=== PATIENT | male | born 1935 | race Caucasian/White ===

== ENCOUNTER 2017-05-26 16:17 | Emergency (ER) | payer OTHER, MEDICARE ==
--- NOTE | 2017-05-26 16:37 | PDOC ---
History of Present Illness - General Chief Complaint: Lightheaded Stated Complaint: VERTIGO Time Seen by Provider: 05/26/17 16:35 - History of Present Illness Initial Comments: 05/26/17 16:36 Mr. Moya is a 81 year old male with a significant past medical history of CLL, peptic ulcer disease, and anemia who presents to the emergency department with symptoms of dizzineness and reported weakness. The patient denies chest pain, shortness of breath, headache. Denies fever, chills, nausea, vomit, diarrhea and constipation. Denies dysuria, frequency, urgency and hematuria. Sayjeni was previously recently diagnosed with vertigo for which he takes nothing. Allergies: NKDA Past surgical history: denies Social history: Drinks a 1/2 bottle of wine / night 05/26/17 18:57 05/26/17 19:23 05/26/17 19:26 Past History - Past Medical History Allergies/Adverse Reactions: Allergies Allergy/AdvReac Type Severity Reaction Status Date / Time No Known Allergies Allergy Verified 07/07/16 09:54 Home Medications: Ambulatory Orders Ascorbic Acid [Vitamin C -] 500 mg PO DAILY tablet 07/11/16 Atenolol [Tenormin -] 25 mg PO DAILY tablet 07/11/16 Atorvastatin Ca [Lipitor] 80 mg PO HS tablet 07/11/16 Fluoxetine HCl [Prozac -] 40 mg PO DAILY capsule 07/11/16 Lisinopril [Prinivil] 5 mg PO DAILY tablet 07/11/16 Lorazepam [Ativan] 1 mg PO Q12H PRN #1 tablet MDD 2 07/11/16 Calcium Carbonate [Calcium] 500 mg PO DAILY 10/14/16 Cholecalciferol (Vitamin D3) [Vitamin D3] 2,000 unit PO DAILY 10/14/16 Docusate Sodium [Colace -] 100 mg PO DAILY PRN 10/14/16 Nitroglycerin 0.4 mg SL PRN PRN 10/14/16 Pantoprazole Sodium [Protonix -] 40 mg PO DAILY #0 tablet.ec 10/14/16 Polyethylene Glycol 3350 [Miralax 119 gm Btl -] 17 gm PO DAILY PRN 10/14/16 Ubidecarenone [Co Q-10] 10 mg PO DAILY 10/14/16 Vitamin B Complex Vit C No.4 [Super B Complex] 150 mg PO DAILY 10/14/16 Anemia: Yes Asthma: No Cancer: No Cardiac Disorders: Yes (ASHD NC-DX 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) CVA: No 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) CHF: No Dementia: No Diabetes: No GI Disorders: Yes (H/O COLON POLYP, DIVERTICULOSIS, HEMORRHOIDS, HIATAL HERNIA; ANTRAL ULCER) Disorders: No HTN: Yes Hypercholesterolemia: Yes Liver Disease: No Suicide Attempt (Hx): No Seizures: No Thyroid Disease: No - Surgical History Abdominal Surgery: Yes (UMBILICAL HERNIA REPAIR,BILATERAL HERNIA REPAIR) Appendectomy: No Cardiac Surgery: Yes (OPEN HEART [id number],TRIPLE-1997) Cholecystectomy: Yes (LAPAROSCOPIC CHOLECYSTECTOMY 2001) Lung Surgery: Yes (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 No fever or chills. HEAD, EYES, EARS, NOSE AND THROAT: No change in vision. No ear pain or discharge. No sore throat. CARDIOVASCULAR: No chest pain or shortness of breath RESPIRATORY: No cough, wheezing, or hemoptysis. GASTROINTESTINAL: No nausea, vomiting, diarrhea or constipation. GENITOURINARY: No dysuria, frequency, or change in urination. MUSCULOSKELETAL: No joint or muscle swelling or pain. No neck or back pain. SKIN: No rash NEUROLOGIC: No headache, vertigo, loss of consciousness, or change in strength/ sensation. ENDOCRINE: No increased thirst. No abnormal weight change HEMATOLOGIC/LYMPHATIC: No anemia, easy bleeding, or history of blood clots. ALLERGIC/IMMUNOLOGIC: No hives or skin allergy. 05/26/17 19:26 *Physical Exam - Physical Exam Comments: 05/26/17 16:37 GENERAL: Awake, alert, and fully oriented, in no acute distress. Some dizziness noted with movement. HEAD: No signs of trauma, normocephalic, atraumatic EYES: PERRLA, EOMI, sclera anicteric, conjunctiva clear ENT: Auricles normal inspection, hearing grossly normal, nares patent, oropharynx clear without exudates. Moist mucosa NECK: Normal ROM, supple, no lymphadenopathy, JVD, or masses LUNGS: No distress, speaks full sentences, clear to auscultation bilaterally HEART: Regular rate and rhythm, normal S1 and S2, no murmurs, rubs or gallops, peripheral pulses normal and equal bilaterally. ABDOMEN: Soft, nontender, normoactive bowel sounds. No guarding, no rebound. No masses EXTREMITIES: Strength excellent. Normal inspection, Normal range of motion, no edema. No clubbing or cyanosis. NEUROLOGICAL: Cranial nerves II through XII grossly intact. Normal speech, normal gait, no focal sensorimotor deficits SKIN: Warm, Dry, normal turgor, no rashes or lesions noted. 05/26/17 19:27 ED Treatment Course - LABORATORY CBC & Chemistry Diagram: 05/26/17 17:43 Medical Decision Making - Medical Decision Making 05/26/17 19:28 Mr. Moya presented complaining of weakness and dizziness. On exam he had very good strength and dizziness with movement. Guaic, bmp, cbc, pt/inr ordered and all normal. CT done and normal. Suspected BPPV. Discharging to home with instructions to follow-up with PCP RE: BPPV as well as suggested psychiatrist for "agitation." Suspect some depression present. *DC/Admit/Observation/Transfer Diagnosis at time of Disposition: Benign paroxysmal positional vertigo Qualifiers: Laterality: unspecified laterality Qualified Code(s): H81.10 - Benign paroxysmal vertigo, unspecified ear - Discharge Dispostion Disposition: HOME - Patient Instructions Additional Instructions: Please follow up with PCP regarding dizziness symptoms. Thank you for coming in today, and please return if any symptoms increase. - Attestations Physician Attestion: 05/26/17 19:31 I, Dr. Pepe Dunbar, attest that this document has been prepared under my direction and personally reviewed by me in its entirety. I further attest, that it accurately reflects all work, treatment, procedures and medical decision -making performed by me.
[2017-05-26 16:46] VITALS: BMI 32.0
[2017-05-26 18:20] LABS: ALBUMIN 3.7 g/dl (3.4-5.0); ALK PHOS 82 U/L (45-117); ANION GAP 6 (8-16); BILIRUBIN,TOTAL 1.2 mg/dL (0.2-1.0); CALCIUM 9.3 mg/dL (8.5-10.1); CO2 31 mmol/L (21-32); GLUCOSE,RANDOM 120 mg/dL (74-106); SGPT/ALT 27 U/L (12-78)
[2017-05-26 18:22] LABS: INR 1.25 (0.82-1.09); PROTHROMBIN TIME (PATIENT) 13.8 SEC (9.98-11.88)
[2017-05-26 18:28] LABS: SGOT/AST 22 U/L (15-37)
[2017-05-26] MEDS ORDERED: ONDANSETRON 4 MG/2 ML VIAL IVPUSH ONE (19:01)
[2017-05-26] MEDS ORDERED: ONDANSETRON 4 MG/2 ML VIAL ONE (19:10)
[2017-05-26 20:30] VITALS: BP 145/78; PULSE 78; TEMP 98.6
--- NOTE | 2017-05-27 13:03 | EKG ---
Test Reason : Blood Pressure : / mmHG Vent. Rate : 065 BPM Atrial Rate : 065 BPM P-R Int : 146 ms QRS Dur : 106 ms QT Int : 440 ms P-R-T Axes : 020 046 034 degrees QTc Int : 457 ms NORMAL SINUS RHYTHM NONSPECIFIC T WAVE ABNORMALITY ABNORMAL ECG WHEN COMPARED WITH ECG OF 07-JUL-2016 12:01, [place] INTERVAL HAS INCREASED RIGHT BUNDLE BRANCH BLOCK IS NO LONGER PRESENT Confirmed by NINFA PORTILLO, BRENDON ([id number]) on 05/27/2017 1:02:51 PM Referred By: Confirmed By:BRENDON OCASIO MD
== END 2017-05-26 20:10 | disposition home or self-care (01) ==
LOC: JER 16:17
PROC: 3E033GC Introduction of Other Therapeutic Substance into Peripheral Vein, Percutaneous Approach (ICD-10-PCS; principal; 2017-05-26)
DX: H81.10 Benign paroxysmal vertigo, unspecified ear (principal); I25.2 Old myocardial infarction; I10 Essential (primary) hypertension; Z95.1 Presence of aortocoronary bypass graft
CPT/HCPCS: 36415; 70450-TC; 71010-TC; 80053; 80307; 82272; 85610; 93005; 93010; 96374; 99284-25